=== PATIENT | female | born 1955 | race Caucasian/White ===

== ENCOUNTER 2020-06-07 12:00 | Emergency (ER) | payer OTHER ==
[2020-06-07 14:26] LABS: BASOPHIL 0.4 % (0-2); EOSINOPHIL 1.1 % (0-7); HCT 43.2 % (37.0-47.0); HGB 14.3 g/dl (12.5-16.0); LYMPHOCYTE 29.7 % (15-48); MCH 28.9 pg (25.0-31.0); MCHC 33.1 g/dL (32.0-36.0); MCV 87.3 fL (78.0-100.0); MONOCYTE 8.7 % (0-12); MPV 9.9 fL (6.0-9.5); NEUTROPHIL 59.9 % (41-80); NRBC 0; PLT 350 K/uL (150-400); RBC 4.95 M/uL (4.20-5.40); RDW 13.5 % (11.5-14.0)
[2020-06-07 14:35] LABS: ALBUMIN 3.6 g/dL (3.4-5.0); BILIRUBIN - TOTAL 0.4 mg/dL (0.2-1.0); BUN/CREAT RATIO (CALC) 17.9 RATIO; CREATININE 0.67 mg/dL (0.51-0.95); GLOBULIN (CALCULATION) 3.9 g/dL; POTASSIUM 3.5 mmol/L (3.5-5.1); TOTAL PROTEIN 7.5 g/dL (6.4-8.2)
[2020-06-07 14:38] LABS: LACTIC ACID 0.6 mmol/L (0.4-1.9)
[2020-06-07 14:43] LABS: PRO-BNP 720 pg/mL (<125)
== END 2020-06-07 18:54 | disposition home or self-care (01) ==
LOC: FER 12:00
PROVIDERS: Physician Assistant
DX: U07.1 COVID-19 (principal); I10 Essential (primary) hypertension; I25.10 Atherosclerotic heart disease of native coronary artery without angina pectoris; J44.9 Chronic obstructive pulmonary disease, unspecified; Z88.0 Allergy status to penicillin; Z79.899 Other long term (current) drug therapy
CPT/HCPCS: 36415; 71275; 80053; 83605; 83880; 84484; 85025; 87040; 93005; J0692; J7030; J7050; M0239; Q9967

== ENCOUNTER → 2021-06-23 | Emergency (ER) | payer MEDICARE, OTHER ==
[2021-06-23 10:02] LABS: BASOPHIL 0.7 % (0-2); HCT 46.9 % (37.0-47.0); HGB 15.8 g/dl (12.5-16.0); LYMPHOCYTE 28.2 % (15-48); MCH 29.4 pg (25.0-31.0); MCHC 33.7 g/dL (32.0-36.0); MCV 87.3 fL (78.0-100.0); MONOCYTE 10.1 % (0-12); MPV 9.4 fL (6.0-9.5); NEUTROPHIL 59.7 % (41-80); NRBC 0; PLT 375 K/uL (150-400); RBC 5.37 M/uL (4.20-5.40); WBC 8.7 K/uL (4.0-10.5)
[2021-06-23 10:18] LABS: INR 0.95 (0.9-1.2); PROTHROMBIN TIME 12.1 SECONDS (11.8-13.4); PTT 31.3 SECONDS (24.4-34.7)
[2021-06-23 10:33] LABS: D-DIMER 5.19 ug/mLFEU (0.00-0.41)
[2021-06-23 10:49] LABS: BILIRUBIN - TOTAL 0.5 mg/dL (0.2-1.0); BUN/CREAT RATIO (CALC) 13.8 RATIO; CREATININE 0.65 mg/dL (0.51-0.95); POTASSIUM 4.3 mmol/L (3.5-5.1)
== END | disposition home or self-care (01) ==
LOC: FER 09:28
PROVIDERS: Emergency Medicine
DX: R07.89 Other chest pain (principal); R10.13 Epigastric pain; J44.9 Chronic obstructive pulmonary disease, unspecified; I10 Essential (primary) hypertension; F17.200 Nicotine dependence, unspecified, uncomplicated; Z20.822 Contact with and (suspected) exposure to COVID-19; Z79.82 Long term (current) use of aspirin
CPT/HCPCS: 36415; 71045; 71275; 80053; 83880; 84484; 85025; 85379; 85610; 85730; 93005; Q9967; U0002

== ENCOUNTER 2021-08-05 08:44 | Day surgery (SDCO) | payer MEDICARE, OTHER ==
[~2021-08-05] VITALS: Ht 167.6 cm; Wt 90.9 kg
[2021-08-05 09:10] LABS: BASOPHIL 0.7 % (0-2); EOSINOPHIL 1.2 % (0-7); HCT 42.5 % (37.0-47.0); HGB 14.4 g/dl (12.5-16.0); LYMPHOCYTE 28.7 % (15-48); MCH 29.7 pg (25.0-31.0); MCHC 33.9 g/dL (32.0-36.0); MCV 87.6 fL (78.0-100.0); MONOCYTE 9.1 % (0-12); MPV 9.4 fL (6.0-9.5); NEUTROPHIL 60.1 % (41-80); NRBC 0; PLT 334 K/uL (150-400); RBC 4.85 M/uL (4.20-5.40); RDW 14.1 % (11.5-14.0); WBC 8.4 K/uL (4.0-10.5)
[2021-08-05 09:21] LABS: PROTHROMBIN TIME 12.6 SECONDS (11.8-13.4); PTT 30.1 SECONDS (24.4-34.7)
[2021-08-05 09:32] LABS: ALBUMIN 3.9 g/dL (3.4-5.0); BILIRUBIN - TOTAL 0.4 mg/dL (0.2-1.0); BUN/CREAT RATIO (CALC) 17.9 RATIO; CREATININE 0.56 mg/dL (0.51-0.95); GLOBULIN (CALCULATION) 4.1 g/dL; POTASSIUM 4.7 mmol/L (3.5-5.1)
--- NOTE | 2021-08-05 14:35 | NUR ---
08/05/21 Dr. Carr requested a social work consult due to patient reporting not to have a caregiver for her to grandsons preventing her from being admitted. Dr. Carr also requested for a cardiology appointment to be scheduled. - Ms. Rehman has made arrangements for her daughter to meet the grandsons when they get off the bus until their father gets home from work. - An appointment was scheduled with Zack Lira for August 21 at 10:00 by the [employer].
[2021-08-05] MEDS ORDERED: ALBUTEROL2.5 MG/3 M NEB (17:05)
[2021-08-05] MEDS ORDERED: ATORVASTATIN CA20 MG PO (17:06)
[2021-08-05] MEDS ORDERED: METOPROLOL SUCC50 MG PO (17:06)
[2021-08-05] MEDS ORDERED: LISINOPRIL40 MG PO (17:06)
[2021-08-05] MEDS ORDERED: CILOSTAZOL100 MG PO (17:07)
[2021-08-05] MEDS ORDERED: OMEPRAZOLE40 MG PO (17:07)
[2021-08-06 06:09] LABS: BUN/CREAT RATIO (CALC) 20.9 RATIO; CREATININE 0.67 mg/dL (0.51-0.95); POTASSIUM 3.9 mmol/L (3.5-5.1)
== END 2021-08-06 16:38 | disposition other institution (70) ==
LOC: FER 08:44 → FTCU 12:10
PROVIDERS: Emergency Medicine; ADMIT Allergy & Immunology Allergy
DX: I25.10 Atherosclerotic heart disease of native coronary artery without angina pectoris (principal); I11.0 Hypertensive heart disease with heart failure; I50.9 Heart failure, unspecified; J43.9 Emphysema, unspecified; E78.5 Hyperlipidemia, unspecified; I73.9 Peripheral vascular disease, unspecified; E89.0 Postprocedural hypothyroidism; K21.9 Gastro-esophageal reflux disease without esophagitis; Z72.0 Tobacco use; Z98.61 Coronary angioplasty status; Z82.49 Family history of ischemic heart disease and other diseases of the circulatory system; Z90.710 Acquired absence of both cervix and uterus; Z95.828 Presence of other vascular implants and grafts; Z88.0 Allergy status to penicillin; Z85.828 Personal history of other malignant neoplasm of skin
CPT/HCPCS: 36415; 36600; 71046; 78452; 80048; 80053; 80061; 82553; 82803; 83036; 83735; 83880; 84484; 85025; 85610; 85730; 93005; 93017; 94010; 94640; 94667; 94668; A9500; G0378; J1940; J2785

== ENCOUNTER 2021-09-24 06:11 | Emergency (ER) | payer MEDICARE, OTHER ==
[~2021-09-24 06:11] MED LIST: ALBUTEROL2.5 MG/3 M NEB; ATORVASTATIN CA20 MG PO; CILOSTAZOL100 MG PO; LISINOPRIL40 MG PO; METOPROLOL SUCC50 MG PO; OMEPRAZOLE40 MG PO
[2021-09-24 07:32] LABS: CORONAVIRUS 2019 SARS-COV-2 NEGATIVE (NEGATIVE); INFLUENZA A NAA NEGATIVE (NEGATIVE)
[2021-09-24] MEDS ORDERED: PREDNISONE 20MG20 MG PO (09:30)
[2021-09-24] MEDS ORDERED: AZITHROMYCIN250 MG PO (09:30)
== END 2021-09-24 09:56 | disposition home or self-care (01) ==
LOC: FER 06:11
PROVIDERS: Emergency Medicine
DX: J44.1 Chronic obstructive pulmonary disease with (acute) exacerbation (principal); F17.210 Nicotine dependence, cigarettes, uncomplicated; Z88.0 Allergy status to penicillin; Z20.822 Contact with and (suspected) exposure to COVID-19
CPT/HCPCS: 71045; 94640; 94664; J2930; U0002